=== PATIENT | male | born 1995 | race Caucasian/White ===

== ENCOUNTER 2018-11-02 09:24 | Emergency (ER) | payer SELFPAY ==
[~2018-11-02] VITALS: Ht 193 cm; Wt 106.6 kg
[2018-11-02 10:44] VITALS: BP 113/74
[2018-11-02] MEDS ORDERED: TETANUS-DIPTH-ACEL PERTUSSIS 0.5ML SYRG IM ONE (11:00)
== END 2018-11-02 11:47 | disposition home or self-care (01) ==
LOC: ER 09:24
DX: S91.332A Puncture wound without foreign body, left foot, initial encounter (principal); F17.210 Nicotine dependence, cigarettes, uncomplicated; X58.XXXA Exposure to other specified factors, initial encounter; Y93.89 Activity, other specified; Y99.8 Other external cause status; Y92.89 Other specified places as the place of occurrence of the external cause
CPT/HCPCS: 73630; 90471; 90715